=== PATIENT | female | born 1990 | race Caucasian/White ===

== ENCOUNTER 2017-09-17 11:09 | Emergency (ER) | END 2017-09-17 16:12 | disposition home or self-care (01) ==

== ENCOUNTER 2018-04-21 20:59 | Outpatient (CLI) | payer OTHER ==
[~2018-04-21] VITALS: Ht 157.5 cm; Wt 82.6 kg
[~2018-04-21 20:59] MED LIST: DOCU-144 PO
[2018-04-21 21:05] VITALS: BP 107/64; PULSE 94; RESP 17; Ht 157.5 cm; Wt 82.6 kg
[2018-04-21] MEDS ORDERED: PREN-93 PO (23:04)
--- NOTE | 2018-04-21 23:13 | TRIAGE ---
OB Triage Datetime Report Generated by CPN: 04/21/2018 23:13 Datetime: 04/21/2018 22:57 Time of Arrival: 04/21/2018 20:49 EGA: [age] Arrived By: Ambulatory Arrived From: Home Chief Complaint: FAINTED AND BACK PAIN Movement: Present Contractions: Denies/Absent Rupture of Membranes: Denies Vaginal Bleeding: None Vaginal Discharge: Denies Recent Sexual Intercouse: Denies Abdominal Trauma: Not Applicable Patient Complaints: Other Initial Plan: CEFM, PULSE OX Datetime: 04/21/2018 22:23 Monitor Mode: External Resting Tone [place]: Relaxed Heart Rate FHR Baseline Rate: 155 Monitor Mode: External US Variability: Moderate 6-25 bpm Accelerations: 15X15 Decelerations: None Category: Category I Datetime: 04/21/2018 22:19 Monitor Mode: External US Datetime: 04/21/2018 22:00 Labor Evaluation Frequency: X1 Monitor Mode: External Duration (sec)2399: 60 Quality: Mild Pattern: Normal: <= 5 Contractions in [address] [place]: Relaxed Heart Rate FHR Baseline Rate: 135 Monitor Mode: External US Variability: Moderate 6-25 bpm Accelerations: 15X15 Decelerations: None Category: Category I Datetime: 04/21/2018 21:05 Pain Assessment Pain Scale: 7 Pain Presence: Constant Pain Type: Ache Pain Location: Back Pain Goal: 2 Pain Relief Measures: Comfort Measures Pain Assessment Comments: PT STATES SHE TOOK TYLENOL AT HOME
--- NOTE | 2018-05-27 15:34 | QN ---
Documentation Comment not seen by me left AMBROSIO TALLEY MD May 27, 2018 15:34
== END 2018-04-21 22:28 | disposition home or self-care (01) ==
LOC: OBT 20:59 → L-D 21:00 → OBT 22:28
PROVIDERS: ATTEND Obstetrics & Gynecology
DX: Z53.21 Procedure and treatment not carried out due to patient leaving prior to being seen by health care provider (principal)
CPT/HCPCS: G0463